=== PATIENT | female | born 1945 | race African-American/Black ===

== ENCOUNTER 2022-05-05 19:48 | Inpatient (IN) ==
[2022-05-05] MEDS ORDERED: hydrALAZINE 20 MG/1 ML VIAL IV PRN (23:54)
[2022-05-05] MEDS ORDERED: GLUCAGON 1 MG VIAL IM PRN (23:54)
[2022-05-05] MEDS ORDERED: ZALEPLON 5 MG CAPSULE PO PRN (23:54)
[2022-05-05] MEDS ORDERED: NICOTINE 21 MG/24 HR PATCH TRANSDERM PRN (23:54)
[2022-05-05] MEDS ORDERED: ACETAMINOPHEN 325 MG TABLET PO PRN (23:54)
[2022-05-05] MEDS ORDERED: guaiFENesin/DM ER 600-30 MG TABLET PO PRN (23:54)
[2022-05-05] MEDS ORDERED: diphenhydrAMINE CAP 25 MG CAPSULE PO PRN (23:54)
[2022-05-05 23:58] LABS: Basophils % 0.2 % (0.0-0.8); Eosinophils % 0.1 % (0.00-10.9); Hematocrit 31.6 VOL% (35.7-47.0); Hemoglobin 9.5 GM/DL (12.0-16.0); Immature Granulocytes % 0.5 %; Immature Granulocytes Absolute 0.05 #; Lymphocytes # 0.8 10*3/uL (1.4-4.0); Lymphocytes % 8.4 % (21.3-54.2); Mean Corpuscular HGB Conc 30.1 GM/DL (32-36); Mean Corpuscular Volume 88.8 FL (87-102); Monocytes # 0.8 10*3/uL (0.11-0.8); Monocytes % 8.7 % (1.7-12.7); NRBC # 0.34 10*3/uL; Neutrophils % 82.1 % (38.7-73.9); Platelet Count 123 T/CUMM (130-400); Red Blood Count 3.56 MC/CUMM (3.8-5.5); White Blood Count 9.3 T/CUMM (4-12)
[2022-05-06] MEDS ORDERED: VANCOMYCIN INJ 1,000 MG in SODIUM CHLORIDE 0.9% 250 ML IV PRN (00:30)
[2022-05-06 00:31] LABS: Albumin 3.1 G/DL (3.4-5.0); Bilirubin,Direct 1.97 MG/DL (0.0-0.20); Bilirubin,Indirect 0.6 MG/DL (0.0-1.0); Bilirubin,Total 2.6 MG/DL (0.20-1.00); Total Protein 6.2 G/DL (6.4-8.2)
[2022-05-06 00:37] LABS: Calcium 7.9 MG/DL (8.5-10.1); Osmolality,Calculated 302.1 MOS/KG (273-304)
[2022-05-06 00:54] LABS: Hepatitis B Core IgM Quant 0.05 Index; Hepatitis B Surface Ag Quant < 0.10 Index; Hepatitis B Surface Ag Result Non-Reactive (NonReactive); Hepatitis C Virus Ab Quant 0.08 Index; Hepatitis C Virus Ab Result Non-Reactive (NonReactive)
[2022-05-06 00:56] LABS: INR 2.4; PT Patient Result 24.9 SECS (10.5-12.0); Partial Thromboplastin Time 40.5 SECS (23.7-32.9)
[2022-05-06] MEDS ORDERED: SODIUM CHLORIDE 0.9% 1,000 ML IV SCH ×2 (03:30→13:30)
[2022-05-06] MEDS: PIPERACILLIN/TAZOBACTAM 3,375 MG in SODIUM CHLORIDE 0.9% 100 ML IV SCH ×2 (04:07→16:06)
[2022-05-06] MEDS: INSULIN LISPRO 100 UNIT/ML SUBCUT SCH ×3 (07:19→18:10)
[2022-05-06] MEDS: PANTOPRAZOLE 40 MG TABLET PO SCH (10:01)
[2022-05-06] MEDS: HEPARIN 5,000 UNIT/1 ML VIAL SUBCUT SCH ×2 (10:02→23:11)
[2022-05-06] MEDS ORDERED: VANCOMYCIN INJ 750 MG in SODIUM CHLORIDE 0.9% 250 ML IV PRN (11:00)
[2022-05-06] MEDS ORDERED: VANCOMYCIN INJ 1,250 MG in SODIUM CHLORIDE 0.9% 250 ML IV ONE (12:00)
[2022-05-06 14:04] LABS: RBC,Urine 5 /HPF (0-4); Squamous Epithelial Cell,Urine Occasional /HPF (0-10); Urine Appearance Slightly Cloudy (Clear); Urine Color Yellow (Yellow); Urine pH 5.5 (4.5-8.0)
[2022-05-06 14:05] LABS: Bilirubin,Urine Negative (Negative); Blood, Urine Moderate mg/dL (Negative); Glucose,Urine (UA) Negative (Negative); Ketones,Urine Negative (Negative); Nitrite,Urine Negative (Negative); Protein,Urine >=300 mg/dL (Negative); Urine Urobilinogen 0.2 eU/dL (<2.0)
[2022-05-06 14:41] LABS: % Iron Saturation 4.9 % (18-50)
[2022-05-06] MEDS: SODIUM BICARB INJ 50 MEQ in SODIUM CHLORIDE 0.45% 1,000 ML IV SCH (15:36)
[2022-05-06] MEDS: carvediloL 3.125 MG TABLET PO SCH (23:11)
[2022-05-06] MEDS: hydrALAZINE 25 MG TABLET PO SCH (23:11)
[2022-05-07] MEDS: INSULIN LISPRO 100 UNIT/ML SUBCUT SCH ×3 (00:41→11:48)
[2022-05-07] MEDS: PIPERACILLIN/TAZOBACTAM 3,375 MG in SODIUM CHLORIDE 0.9% 100 ML IV SCH ×2 (03:33→16:13)
[2022-05-07 05:16] LABS: Basophils % 0.1 % (0.0-0.8); Eosinophils % 0.1 % (0.00-10.9); Hematocrit 27.2 VOL% (35.7-47.0); Hemoglobin 8.5 GM/DL (12.0-16.0); Immature Granulocytes % 0.8 %; Immature Granulocytes Absolute 0.06 #; Lymphocytes # 0.8 10*3/uL (1.4-4.0); Lymphocytes % 10.2 % (21.3-54.2); Mean Corpuscular HGB Conc 31.3 GM/DL (32-36); Mean Corpuscular Volume 86.1 FL (87-102); Monocytes # 0.7 10*3/uL (0.11-0.8); Monocytes % 8.2 % (1.7-12.7); NRBC # 0.27 10*3/uL; Neutrophils % 80.6 % (38.7-73.9); Red Blood Count 3.16 MC/CUMM (3.8-5.5); Red Cell Distribution Width 16.4 % (9.3-17.3); White Blood Count 7.9 T/CUMM (4-12)
[2022-05-07 05:17] LABS: Platelet Count 96 T/CUMM (130-400)
[2022-05-07 05:28] LABS: Calcium 7.9 MG/DL (8.5-10.1); Osmolality,Calculated 311.6 MOS/KG (273-304); Potassium 4.4 MMOL/L (3.5-5.1)
[2022-05-07 06:21] LABS: Albumin 2.7 G/DL (3.4-5.0); Bilirubin,Total 2.2 MG/DL (0.20-1.00); Calcium 8.1 MG/DL (8.5-10.1); Osmolality,Calculated 298.4 MOS/KG (273-304); Potassium 4.5 MMOL/L (3.5-5.1); Total Protein 5.6 G/DL (6.4-8.2)
[2022-05-07] MEDS ORDERED: SODIUM BICARB INJ 100 MEQ in SODIUM CHLORIDE 0.45% 1,000 ML IV SCH (09:00)
[2022-05-07 09:58] LABS: INR 2.7; PT Patient Result 28.2 SECS (10.5-12.0)
[2022-05-07] MEDS: hydrALAZINE 25 MG TABLET PO SCH ×2 (11:45→22:21)
[2022-05-07] MEDS: carvediloL 3.125 MG TABLET PO SCH ×2 (11:46→22:21)
[2022-05-07] MEDS: ISOSORBIDE MONONITRATE 30 MG TABLET PO SCH (11:47)
[2022-05-07] MEDS: PANTOPRAZOLE 40 MG TABLET PO SCH (11:51)
[2022-05-07] MEDS: HEPARIN 5,000 UNIT/1 ML VIAL SUBCUT SCH ×2 (11:53→22:21)
[2022-05-07] MEDS ORDERED: PHYTONADIONE 10 MG/1 ML AMP SUBCUT ONE (12:26)
[2022-05-07] MEDS ORDERED: VANCOMYCIN INJ 750 MG in SODIUM CHLORIDE 0.9% 250 ML IV ONE (13:00)
[2022-05-07] MEDS: SODIUM BICARB INJ 50 MEQ in SODIUM CHLORIDE 0.45% 1,000 ML IV SCH (15:50)
[2022-05-07] MEDS: SODIUM BICARB INJ 50 MEQ in DEXTROSE 5% NACL 0.45% 1,000 ML IV SCH (16:12)
[2022-05-07] MEDS: ONDANSETRON 4 MG/2 ML VIAL IV PRN (16:13)
[2022-05-08 03:57] LABS: Basophils % 0.1 % (0.0-0.8); Hematocrit 27.9 VOL% (35.7-47.0); Hemoglobin 8.1 GM/DL (12.0-16.0); Immature Granulocytes % 1.3 %; Immature Granulocytes Absolute 0.15 #; Lymphocytes % 8.4 % (21.3-54.2); Mean Corpuscular Volume 91.2 FL (87-102); Monocytes # 1.1 10*3/uL (0.11-0.8); Monocytes % 9.2 % (1.7-12.7); NRBC # 0.45 10*3/uL; Platelet Count 83 T/CUMM (130-400); Red Blood Count 3.06 MC/CUMM (3.8-5.5); Red Cell Distribution Width 17.1 % (9.3-17.3); White Blood Count 11.6 T/CUMM (4-12)
[2022-05-08 04:12] LABS: Calcium 8.6 MG/DL (8.5-10.1); Osmolality,Calculated 318.8 MOS/KG (273-304)
[2022-05-08 04:16] LABS: Platelet Estimate Decreased
[2022-05-08 04:17] LABS: Acanthocytes Few; Hypochromia Slight
[2022-05-08 04:18] LABS: Elliptocytes Few
[2022-05-08 04:24] LABS: Potassium 6.1 MMOL/L (3.5-5.1)
[2022-05-08] MEDS: PIPERACILLIN/TAZOBACTAM 3,375 MG in SODIUM CHLORIDE 0.9% 100 ML IV SCH ×2 (04:59→18:03)
[2022-05-08 08:52] LABS: Albumin 2.7 G/DL (3.4-5.0); Bilirubin,Direct 2.43 MG/DL (0.0-0.20); Bilirubin,Indirect 0.8 MG/DL (0.0-1.0); Bilirubin,Total 3.2 MG/DL (0.20-1.00); Total Protein 5.7 G/DL (6.4-8.2)
[2022-05-08] MEDS: SODIUM POLYSTYRENE SULFATE 15 GM/60 ML BOTTLE PO SCH ×3 (09:15→20:59)
[2022-05-08] MEDS: carvediloL 3.125 MG TABLET PO SCH ×2 (09:16→21:47)
[2022-05-08] MEDS: ISOSORBIDE MONONITRATE 30 MG TABLET PO SCH (09:16)
[2022-05-08] MEDS: PANTOPRAZOLE 40 MG TABLET PO SCH (09:16)
[2022-05-08] MEDS: SODIUM BICARB INJ 50 MEQ in DEXTROSE 5% NACL 0.45% 1,000 ML IV SCH ×2 (09:16→09:49)
[2022-05-08] MEDS: hydrALAZINE 25 MG TABLET PO SCH ×3 (09:17→21:47)
[2022-05-08] MEDS: HEPARIN 5,000 UNIT/1 ML VIAL SUBCUT SCH ×2 (09:18→21:47)
[2022-05-08] MEDS ORDERED: PHYTONADIONE 10 MG/1 ML AMP SUBCUT ONE (12:23)
[2022-05-08 14:36] LABS: Mitochondrial Antibody (M2) <0.1 U
[2022-05-09] MEDS: SODIUM POLYSTYRENE SULFATE 15 GM/60 ML BOTTLE PO SCH ×3 (02:45→14:40)
[2022-05-09] MEDS: PIPERACILLIN/TAZOBACTAM 3,375 MG in SODIUM CHLORIDE 0.9% 100 ML IV SCH ×2 (04:00→16:54)
[2022-05-09 04:21] LABS: Basophils % 0.1 % (0.0-0.8); Hematocrit 24.6 VOL% (35.7-47.0); Hemoglobin 7.4 GM/DL (12.0-16.0); Immature Granulocytes % 1.1 %; Immature Granulocytes Absolute 0.16 #; Lymphocytes # 1.2 10*3/uL (1.4-4.0); Lymphocytes % 7.8 % (21.3-54.2); Mean Corpuscular HGB Conc 30.1 GM/DL (32-36); Mean Corpuscular Volume 90.1 FL (87-102); Monocytes # 1.5 10*3/uL (0.11-0.8); Monocytes % 10.1 % (1.7-12.7); NRBC # 0.62 10*3/uL; Neutrophils % 80.9 % (38.7-73.9); Platelet Count 58 T/CUMM (130-400); Red Blood Count 2.73 MC/CUMM (3.8-5.5); Red Cell Distribution Width 17.3 % (9.3-17.3); White Blood Count 15.2 T/CUMM (4-12)
[2022-05-09 04:41] LABS: Acanthocytes Few; Elliptocytes Few; Platelet Estimate Decreased
[2022-05-09 04:42] LABS: Hypochromia Slight
[2022-05-09 04:43] LABS: Calcium 7.2 MG/DL (8.5-10.1); Osmolality,Calculated 325.7 MOS/KG (273-304); Potassium 5.6 MMOL/L (3.5-5.1)
[2022-05-09] MEDS: SODIUM BICARB INJ 50 MEQ in DEXTROSE 5% NACL 0.45% 1,000 ML IV SCH ×2 (07:34→10:05)
[2022-05-09 08:27] LABS: INR 4.7; PT Patient Result 46.1 SECS (10.5-12.0)
[2022-05-09] MEDS: hydrALAZINE 25 MG TABLET PO SCH ×2 (08:35→22:02)
[2022-05-09] MEDS: carvediloL 3.125 MG TABLET PO SCH (08:35)
[2022-05-09 09:22] LABS: Albumin 2.7 G/DL (3.4-5.0); Bilirubin,Direct 2.89 MG/DL (0.0-0.20); Bilirubin,Indirect 0.7 MG/DL (0.0-1.0); Bilirubin,Total 3.6 MG/DL (0.20-1.00); Total Protein 5.8 G/DL (6.4-8.2)
[2022-05-09] MEDS: ISOSORBIDE MONONITRATE 30 MG TABLET PO SCH (09:23)
[2022-05-09] MEDS: PANTOPRAZOLE 40 MG TABLET PO SCH (09:23)
[2022-05-09] MEDS: INSULIN LISPRO 100 UNIT/ML SUBCUT SCH ×3 (09:26→19:06)
[2022-05-09 13:56] LABS: Antinuclear Ab, S 0.4 U
[2022-05-09 14:26] LABS: Smooth Muscle Antibody Negative (Negative)
[2022-05-09] MEDS ORDERED: VANCOMYCIN INJ 750 MG in SODIUM CHLORIDE 0.9% 250 ML IV PRN (16:19)
[2022-05-09] MEDS: SODIUM POLYSTYRENE SULFATE 15 GM/60 ML BOTTLE RECTAL SCH (22:01)
[2022-05-10] MEDS: SODIUM POLYSTYRENE SULFATE 15 GM/60 ML BOTTLE RECTAL SCH ×2 (01:02→10:28)
[2022-05-10] MEDS: INSULIN LISPRO 100 UNIT/ML SUBCUT SCH ×4 (01:02→19:16)
[2022-05-10] MEDS: SODIUM BICARB INJ 50 MEQ in DEXTROSE 5% NACL 0.45% 1,000 ML IV SCH (01:05)
[2022-05-10] MEDS: PIPERACILLIN/TAZOBACTAM 3,375 MG in SODIUM CHLORIDE 0.9% 100 ML IV SCH ×2 (03:38→16:54)
[2022-05-10 05:19] LABS: Basophils % 0.1 % (0.0-0.8); Hematocrit 22.4 VOL% (35.7-47.0); Hemoglobin 7.1 GM/DL (12.0-16.0); Immature Granulocytes % 0.8 %; Immature Granulocytes Absolute 0.12 #; Lymphocytes # 0.5 10*3/uL (1.4-4.0); Lymphocytes % 3.5 % (21.3-54.2); Mean Corpuscular HGB Conc 31.7 GM/DL (32-36); Mean Corpuscular Volume 85.8 FL (87-102); Monocytes # 1.7 10*3/uL (0.11-0.8); Monocytes % 10.7 % (1.7-12.7); NRBC # 0.54 10*3/uL; Neutrophils % 84.9 % (38.7-73.9); Platelet Count 66 T/CUMM (130-400); Red Blood Count 2.61 MC/CUMM (3.8-5.5); Red Cell Distribution Width 17.1 % (9.3-17.3); White Blood Count 15.5 T/CUMM (4-12)
[2022-05-10 05:24] LABS: Calcium 6.8 MG/DL (8.5-10.1); Osmolality,Calculated 340.6 MOS/KG (273-304); Potassium 4.4 MMOL/L (3.5-5.1)
[2022-05-10 05:26] LABS: INR 3.7; PT Patient Result 37.5 SECS (10.5-12.0)
[2022-05-10 05:50] LABS: Hypochromia Slight; Lymphocytes 6 % (20-55); Microcytosis Slight; Nucleated Red Blood Cells 4 (0-5); Platelet Estimate Decreased; Total Cells Counted 100
[2022-05-10 05:51] LABS: Acanthocytes Few; Elliptocytes Few
[2022-05-10] MEDS ORDERED: EPINEPHrine 1 MG/10 ML SYRINGE IV ONE (09:24)
[2022-05-10] MEDS ORDERED: SODIUM BICARBONATE 50 MEQ/50 ML SYRINGE IV ONE (09:26)
[2022-05-10] MEDS ORDERED: CALCIUM CHLORIDE 1,000 MG/10 ML SYRINGE IV ONE (09:27)
[2022-05-10] MEDS ORDERED: ETOMIDATE 20 MG/10 ML VIAL IV ONE ×2 (09:32→09:33)
[2022-05-10] MEDS ORDERED: ROCURONIUM 100 MG/10 ML VIAL IV ONE (09:35)
[2022-05-10] MEDS ORDERED: PANTOPRAZOLE 40 MG VIAL IV SCH (10:00)
[2022-05-10] MEDS ORDERED: SODIUM BICARB INJ 150 MEQ in STERILE WATER INJ 850 ML IV SCH (10:00)
[2022-05-10] MEDS: PANTOPRAZOLE 40 MG TABLET PO SCH (10:28)
[2022-05-10] MEDS: hydrALAZINE 25 MG TABLET PO SCH (10:30)
[2022-05-10] MEDS: ISOSORBIDE MONONITRATE 30 MG TABLET PO SCH (10:30)
[2022-05-10 10:34] LABS: Albumin 2.5 G/DL (3.4-5.0); Bilirubin,Direct 2.75 MG/DL (0.0-0.20); Bilirubin,Indirect 0.8 MG/DL (0.0-1.0); Bilirubin,Total 3.5 MG/DL (0.20-1.00); Total Protein 5.6 G/DL (6.4-8.2)
[2022-05-10 10:44] LABS: ABG Base Excess -13.8 MMOL/L (-2.5-2.5); ABG HCO3 13.5 MMOL/L (20-26); ABG Oxygen Saturation 99.7 % (95-100); ABG PCO2 39.1 MM HG (35-48); ABG TCO2 13.6 MMOL/L (23-27)
[2022-05-10 10:47] LABS: ABG PH 7.159 (7.35-7.45)
[2022-05-10 10:52] LABS: Basophils % 0.1 % (0.0-0.8); Hematocrit 20.9 VOL% (35.7-47.0); Hemoglobin 6.5 GM/DL (12.0-16.0); Immature Granulocytes % 1.4 %; Lymphocytes # 0.7 10*3/uL (1.4-4.0); Lymphocytes % 5.2 % (21.3-54.2); Mean Corpuscular HGB Conc 31.1 GM/DL (32-36); Mean Corpuscular Volume 85.3 FL (87-102); Monocytes # 1.4 10*3/uL (0.11-0.8); Monocytes % 9.9 % (1.7-12.7); NRBC # 0.71 10*3/uL; Neutrophils % 83.4 % (38.7-73.9); Red Blood Count 2.45 MC/CUMM (3.8-5.5); Red Cell Distribution Width 16.9 % (9.3-17.3); White Blood Count 14.2 T/CUMM (4-12)
[2022-05-10] MEDS ORDERED: SODIUM BICARBONATE 50 MEQ/50 ML VIAL IV ONE (10:53)
[2022-05-10 10:57] LABS: Platelet Count 66 T/CUMM (130-400)
[2022-05-10] MEDS ORDERED: DEXMEDETOMIDINE 200 MCG in SODIUM CHLORIDE 0.9% 48 ML IV PRN (11:01)
[2022-05-10 11:03] LABS: INR 3.6; PT Patient Result 36.3 SECS (10.5-12.0); Partial Thromboplastin Time 63.5 SECS (23.7-32.9)
[2022-05-10 11:11] LABS: Acanthocytes Few; Elliptocytes Few; Hypochromia 1+; Microcytosis 1+; Platelet Estimate Decreased
[2022-05-10] MEDS ORDERED: SODIUM CHLORIDE 0.9% 1,000 ML IV PRN (11:12)
[2022-05-10 11:27] LABS: Alanine Aminotransferase 1587 U/L (13-56); Albumin 2.5 G/DL (3.4-5.0); Alkaline Phosphatase 230 U/L (45-117); Aspartate Amino Transferase 2294 U/L (0-37); Blood Urea Nitrogen 124 MG/DL (7-18); Calcium 7.4 MG/DL (8.5-10.1); Carbon Dioxide 14 MMOL/L (21-32); Chloride 116 MMOL/L (98-107); Glucose 235 MG/DL (74-106); Osmolality,Calculated 346.9 MOS/KG (273-304); Potassium 3.6 MMOL/L (3.5-5.1); Sodium 151 MMOL/L (136-145); Total Protein 5.2 G/DL (6.4-8.2)
[2022-05-10] MEDS: SODIUM BICARB INJ 150 MEQ in STERILE WATER INJ 1,000 ML IV SCH ×3 (11:27→22:15)
[2022-05-10] MEDS ORDERED: SODIUM CHLORIDE 0.9% 500 ML IV ONE (13:17)
[2022-05-10] MEDS ORDERED: NOREPINEPHRINE 4 MG/4 ML VIAL IV ONE (14:21)
[2022-05-10] MEDS: NOREPINEPHRINE 8 MG in SODIUM CHLORIDE 0.9% 242 ML IV PRN (14:33)
[2022-05-10 14:49] LABS: Arterial Base Excess iSTAT -6 MMOL/L (-2.5-2.5); Arterial Bicarbonate iSTAT 19.9 MMOL/L (20-26); Arterial O2 Saturation iSTAT 100 % (95-100); Arterial PCO2 iSTAT 38 MM HG (35-48); Arterial PO2 iSTAT 425 MM HG (80-95); Arterial Total CO2 iSTAT 21 MMO/L (23-27); Arterial pH iSTAT 7.328 (7.35-7.45)
[2022-05-10] MEDS ORDERED: MIDAZOLAM 2 MG/2 ML VIAL ONE (14:54)
[2022-05-10] MEDS ORDERED: MIDAZOLAM 2 MG/2 ML VIAL IV ONE (14:55)
[2022-05-10] MEDS: DEXMEDETOMIDINE 400 MCG in SODIUM CHLORIDE 0.9% 96 ML IV PRN (18:29)
[2022-05-10] MEDS: PANTOPRAZOLE 40 MG VIAL IV SCH (21:05)
[2022-05-11] MEDS: INSULIN LISPRO 100 UNIT/ML SUBCUT SCH ×4 (00:10→17:54)
[2022-05-11] MEDS: NOREPINEPHRINE 8 MG in SODIUM CHLORIDE 0.9% 242 ML IV PRN (01:09)
[2022-05-11] MEDS: SODIUM BICARB INJ 150 MEQ in STERILE WATER INJ 1,000 ML IV SCH ×6 (01:20→22:20)
[2022-05-11] MEDS: PIPERACILLIN/TAZOBACTAM 3,375 MG in SODIUM CHLORIDE 0.9% 100 ML IV SCH ×2 (03:13→15:35)
[2022-05-11 04:10] LABS: ABG Base Excess -3.4 MMOL/L (-2.5-2.5); ABG HCO3 21.6 MMOL/L (20-26); ABG Oxygen Saturation 97.8 % (95-100); ABG PCO2 34.3 MM HG (35-48); ABG PH 7.393 (7.35-7.45); ABG TCO2 18.8 MMOL/L (23-27)
[2022-05-11 04:16] LABS: Basophils % 0.1 % (0.0-0.8); Eosinophils % 0.1 % (0.00-10.9); Hematocrit 32.6 VOL% (35.7-47.0); Hemoglobin 10.8 GM/DL (12.0-16.0); Immature Granulocytes % 1.7 %; Immature Granulocytes Absolute 0.16 #; Lymphocytes # 0.2 10*3/uL (1.4-4.0); Lymphocytes % 2.1 % (21.3-54.2); Mean Corpuscular HGB Conc 33.1 GM/DL (32-36); Mean Corpuscular Volume 81.5 FL (87-102); Monocytes # 0.6 10*3/uL (0.11-0.8); Monocytes % 6.4 % (1.7-12.7); NRBC # 0.73 10*3/uL; Neutrophils % 89.6 % (38.7-73.9); Platelet Count 46 T/CUMM (130-400); Red Cell Distribution Width 16.2 % (9.3-17.3); White Blood Count 9.2 T/CUMM (4-12)
[2022-05-11 04:23] LABS: INR 2.7; PT Patient Result 27.5 SECS (10.5-12.0)
[2022-05-11 04:29] LABS: Calcium 6.1 MG/DL (8.5-10.1); Osmolality,Calculated 337.9 MOS/KG (273-304); Potassium 3.3 MMOL/L (3.5-5.1)
[2022-05-11 04:40] LABS: Lymphocytes 2 % (20-55); Nucleated Red Blood Cells 16 (0-5); Platelet Estimate Adequate; Polychromasia 1+; Total Cells Counted 100
[2022-05-11 04:41] LABS: Giant Platelets Few
[2022-05-11 04:48] LABS: Risk Ratio 7.3; VLDL Cholesterol 22.4 MG/DL
[2022-05-11 04:56] LABS: Albumin 2.1 G/DL (3.4-5.0); Bilirubin,Total 4.2 MG/DL (0.20-1.00); Calcium 6.2 MG/DL (8.5-10.1); Potassium 3.3 MMOL/L (3.5-5.1); Total Protein 4.6 G/DL (6.4-8.2)
[2022-05-11 06:03] LABS: Albumin 1.9 G/DL (3.4-5.0); Bilirubin,Direct 3.37 MG/DL (0.0-0.20); Bilirubin,Indirect 0.9 MG/DL (0.0-1.0); Bilirubin,Total 4.3 MG/DL (0.20-1.00); Total Protein 4.6 G/DL (6.4-8.2)
[2022-05-11] MEDS: NOREPINEPHRINE 16 MG in SODIUM CHLORIDE 0.9% 234 ML IV PRN ×2 (08:36→17:44)
[2022-05-11] MEDS: PANTOPRAZOLE 40 MG VIAL IV SCH ×2 (08:40→21:08)
[2022-05-11] MEDS ORDERED: HEPARIN 5,000 UNIT/1 ML VIAL IV ONE (09:55)
[2022-05-11] MEDS ORDERED: HEPARIN 10,000 UNIT/10 ML VIAL IV SCH (10:30)
[2022-05-11] MEDS: DEXTROSE 10% 250 ML BAG IV PRN (11:26)
[2022-05-11] MEDS: HYDROCORTISONE 100 MG VIAL IV SCH ×2 (11:52→21:09)
[2022-05-11] MEDS: DEXMEDETOMIDINE 400 MCG in SODIUM CHLORIDE 0.9% 96 ML IV PRN (17:00)
[2022-05-11] MEDS: ONDANSETRON 4 MG/2 ML VIAL IV PRN (23:50)
[2022-05-12] MEDS: INSULIN LISPRO 100 UNIT/ML SUBCUT SCH ×4 (00:06→17:47)
[2022-05-12 00:13] LABS: Calcium 6.2 MG/DL (8.5-10.1); Osmolality,Calculated 331.3 MOS/KG (273-304); Potassium 3.8 MMOL/L (3.5-5.1)
[2022-05-12] MEDS: NOREPINEPHRINE 16 MG in SODIUM CHLORIDE 0.9% 234 ML IV PRN ×3 (00:19→13:55)
[2022-05-12] MEDS: SODIUM BICARB INJ 150 MEQ in STERILE WATER INJ 1,000 ML IV SCH ×5 (00:47→16:26)
[2022-05-12 01:10] LABS: ABG Base Excess -0.3 MMOL/L (-2.5-2.5); ABG HCO3 24.1 MMOL/L (20-26); ABG Oxygen Saturation 96.9 % (95-100); ABG PCO2 35.8 MM HG (35-48); ABG PH 7.427 (7.35-7.45); ABG PO2 98.4 MM HG (80-95); ABG TCO2 21.1 MMOL/L (23-27)
[2022-05-12 02:36] LABS: Basophils % 0.2 % (0.0-0.8); Hematocrit 32.6 VOL% (35.7-47.0); Hemoglobin 11.2 GM/DL (12.0-16.0); Immature Granulocytes % 5.5 %; Immature Granulocytes Absolute 0.92 #; Lymphocytes # 0.5 10*3/uL (1.4-4.0); Lymphocytes % 2.8 % (21.3-54.2); Mean Corpuscular HGB Conc 34.4 GM/DL (32-36); Mean Corpuscular Volume 80.3 FL (87-102); Monocytes # 1.1 10*3/uL (0.11-0.8); Monocytes % 6.8 % (1.7-12.7); NRBC # 1.34 10*3/uL; Neutrophils % 84.7 % (38.7-73.9); Red Blood Count 4.06 MC/CUMM (3.8-5.5); Red Cell Distribution Width 16.5 % (9.3-17.3); White Blood Count 16.6 T/CUMM (4-12)
[2022-05-12 02:39] LABS: Platelet Count 38 T/CUMM (130-400)
[2022-05-12] MEDS: PIPERACILLIN/TAZOBACTAM 3,375 MG in SODIUM CHLORIDE 0.9% 100 ML IV SCH ×2 (03:04→15:24)
[2022-05-12 03:05] LABS: Lymphocytes 21 % (20-55); Nucleated Red Blood Cells 52 (0-5); Platelet Estimate Decreased; Total Cells Counted 100
[2022-05-12] MEDS: HYDROCORTISONE 100 MG VIAL IV SCH ×2 (03:05→10:51)
[2022-05-12 03:06] LABS: Polychromasia 2+; Smudge Cells 1+
[2022-05-12 04:09] LABS: Basophils # 0.1 10*3/uL (0.0-0.2); Basophils % 0.5 % (0.0-0.8); Hematocrit 30.8 VOL% (35.7-47.0); Hemoglobin 10.9 GM/DL (12.0-16.0); Immature Granulocytes % 8.6 %; Immature Granulocytes Absolute 1.49 #; Lymphocytes # 0.3 10*3/uL (1.4-4.0); Lymphocytes % 1.8 % (21.3-54.2); Mean Corpuscular HGB Conc 35.4 GM/DL (32-36); Mean Corpuscular Volume 78.6 FL (87-102); Monocytes # 1.1 10*3/uL (0.11-0.8); Monocytes % 6.6 % (1.7-12.7); NRBC # 1.47 10*3/uL; Neutrophils % 82.5 % (38.7-73.9); Red Blood Count 3.92 MC/CUMM (3.8-5.5); Red Cell Distribution Width 16.4 % (9.3-17.3); White Blood Count 17.4 T/CUMM (4-12)
[2022-05-12] MEDS: ONDANSETRON 4 MG/2 ML VIAL IV PRN (04:10)
[2022-05-12 04:17] LABS: Platelet Count 35 T/CUMM (130-400)
[2022-05-12 04:20] LABS: Calcium 6.2 MG/DL (8.5-10.1); Osmolality,Calculated 321.8 MOS/KG (273-304); Potassium 3.9 MMOL/L (3.5-5.1)
[2022-05-12 04:44] LABS: Lymphocytes 16 % (20-55); Nucleated Red Blood Cells 19 (0-5); Platelet Estimate Decreased; Total Cells Counted 100
[2022-05-12 04:45] LABS: Polychromasia 1+
[2022-05-12] MEDS: DEXTROSE 10% 250 ML BAG IV PRN (06:00)
[2022-05-12 06:10] LABS: ABG Base Excess 0.4 MMOL/L (-2.5-2.5); ABG HCO3 24.7 MMOL/L (20-26); ABG PCO2 36.1 MM HG (35-48); ABG PH 7.436 (7.35-7.45); ABG PO2 96.7 MM HG (80-95); ABG TCO2 21.9 MMOL/L (23-27)
[2022-05-12 07:32] LABS: INR 2.1; PT Patient Result 22.3 SECS (10.5-12.0)
[2022-05-12] MEDS ORDERED: MORPHINE 2 MG/1 ML SYRINGE ONE (07:32)
[2022-05-12] MEDS ORDERED: MORPHINE 2 MG/1 ML SYRINGE IV ONE (07:40)
[2022-05-12] MEDS ORDERED: MORPHINE 2 MG/1 ML SYRINGE IV PRN ×2 (07:40→18:09)
[2022-05-12] MEDS: DEXMEDETOMIDINE 400 MCG in SODIUM CHLORIDE 0.9% 96 ML IV PRN ×2 (08:00→18:05)
[2022-05-12 08:18] LABS: Albumin 1.7 G/DL (3.4-5.0); Bilirubin,Direct 4.93 MG/DL (0.0-0.20); Bilirubin,Indirect 1.3 MG/DL (0.0-1.0); Bilirubin,Total 6.2 MG/DL (0.20-1.00); Total Protein 4.7 G/DL (6.4-8.2)
[2022-05-12] MEDS: PANTOPRAZOLE 40 MG VIAL IV SCH (09:09)
[2022-05-12 18:29] VITALS: BP 31/23
== END 2022-05-12 19:15 | disposition expired | DRG 441 ==
LOC: N.TELEN 22:16 → SUATTDRO 23:54 → N.ICU 05-10 09:45
PROVIDERS: ADMIT Internal Medicine; ATTEND Family Medicine